=== PATIENT | male | born 1935 | race Caucasian/White ===

== ENCOUNTER 2016-12-08 20:36 | Inpatient (IN) | payer MEDICARE ==
--- NOTE | ~2016-12-08 | OP ---
Record Of Operation [facility] [address] [place]. [address] NAME: MELISSA PARIKH : 34 STATUS : ADM IN PAT#: [id number] AGE: 81 ADM/REG DATE : 12/08/16 MR#: [id number] REPORT SERV DATE: 12/08/16 DICTATED BY: JUDIT MENARD DATE: 12/08/16 REPORT STATUS : Draft TRANSCRIBED BY: MODTimo DATE: 12/08/16 DATE OF PROCEDURE: 12/08/2016 PULMONARY CRITICAL CARE MEDICINE PROCEDURE NOTE PROCEDURE: Endotracheal intubation. BACKGROUND: Melissa Parikh is a gentleman who was just flown in for ST-elevation AR from an outside facility. He was on the table in the laboratory apparatus glass grinder undergoing left heart catheterization with Interventional Cardiology and became increasingly short of breath. A Code Blue was called as he had developed a junctional rhythm with oxygen saturation in the 60s, and upon our arrival, had never lost a pulse. At the request of Dr. Schafer, he was emergently intubated on the laboratory apparatus glass grinder table intraoperatively. PREMEDICATION: 20 mg of etomidate, 50 mg of rocuronium followed by 5 mL of propofol. PROCEDURE IN DETAIL: During left heart catheterization, Mr. Parikh was positioned and premedicated with rapid sequence intubation drugs as described above and #3 GlideScope was advanced into his mouth and was used to directly visualize his vocal cords, and an endotracheal tube (#7.5) was advanced under direct visualization into his trachea to a depth of approximately 22 cm at the teeth. Following intubation, he had bilateral breath sounds. There was adequate color change on CO2 detector. There was condensation in the tube with bagging and absent breath sounds over the fundus of the stomach. A followup x-ray will be requested once he is moved out of the laboratory apparatus glass grinder and up to the CCU. An OG tube was also inserted and placement will be confirmed after he is moved to the CCU. Please see additional Critical Care documentation for further details. NASIM/CLEVE Judit Menard MD / [id number] CC: Donaldo Schafer MD
--- NOTE | ~2016-12-08 | OP ---
Record Of Operation [facility] [address] [place]. [address] NAME: MELISSA DELACRUZ : 34 STATUS : ADM IN PAT#: [id number] AGE: 81 ADM/REG DATE : 12/08/16 MR#: [id number] REPORT SERV DATE: 12/13/16 DICTATED BY: IVONNE BHATTI DATE: 12/13/16 REPORT STATUS : Draft TRANSCRIBED BY: CLEVE DATE: 12/13/16 DATE OF PROCEDURE: 12/13/2016 PREOPERATIVE DIAGNOSIS: Paraphimosis and misplaced Barrett catheter. POSTOPERATIVE DIAGNOSIS: Paraphimosis and misplaced Barrett catheter. PROCEDURE: Reduction of paraphimosis and replacement of Barrett catheter. PROCEDURE IN DETAIL: Steady pressure was held with a 4 x 4 wrap on the patient's edematous foreskin until the edema was gone. The foreskin was then reduced to its appropriate anatomic position. The patient tolerated well. The Barrett catheter was then prepped with alcohol wipes to the hub. Copious K-Y jelly was placed at the patient's meatus. The balloon was then deflated. 10 mL only was found in the 30 mL balloon. The catheter was then advanced all the way to the hub without difficulty. 30 mL of sterile water was then placed in the catheter balloon. This was then seated at the bladder neck. The patient's urine cleared considerably. The patient's catheter was then cleaned and taped without traction to his left thigh. The patient's entire leg and catheter was then wrapped in Kerlix gauze from the tip of his penis to his knee. This is in the typical maneuver. This is to dissuade the patient from future attempts at pulling on his Barrett catheter. The patient was then turned back over to nursing staff. BIGG/CLEVE Ivonne Bhatti M.D. / [id number] CC: MD Aren Reed M.D.
--- NOTE | ~2016-12-08 | CN ---
Consultation Report [facility] [address] [place]. [address] NAME: MELISSA PARIKH : 34 STATUS : ADM IN PAT#: [id number] AGE: 81 ADM/REG DATE : 12/08/16 MR#: [id number] REPORT SERV DATE: 12/08/16 DICTATED BY: JUDIT MENARD DATE: 12/08/16 REPORT STATUS : Draft TRANSCRIBED BY: MODL DATE: 12/08/16 PULMONARY CRITICAL CARE MEDICINE CONSULTATION DATE OF CONSULTATION: 12/08/2016 REASON FOR CONSULTATION: Acute hypoxemic respiratory failure in the setting of STEMI with cardiogenic shock. HISTORY OF PRESENT ILLNESS: Mr. Parikh is an 81-year-old gentleman who was just flown in to our facility in the last hour carrying the diagnosis of STEMI, who had been urgently moved to the laboratory specialist for left heart catheterization with Dr. Schafer. He decompensated on the cath table, developed a junctional rhythm and satting in the 60s and a Code Blue was called, although he never actually lost a pulse prior to the code team's arrival. He was noted to be quite cyanotic, although still awake and interactive. Decision was made to intubate for airway protection and mechanical ventilatory support at Dr. Schafer's request and that procedure was performed on the laboratory specialist table, please see my separate dictation. He is now being moved to the CCU for ongoing management of his coronary event and associated shock and respiratory failure. All additional information is drawn from review of [employer] and [employer] as his family has not yet arrived and (he was flown in from [place], [place]). PAST MEDICAL HISTORY: Gleaned from review of [employer] and [employer] includes long-standing Crohn's disease with long-term immunosuppression followed by Dr. Antonino Monson, atrial fibrillation which is chronic in nature status post multiple ablation attempts in [address] Ronnie Denny, hypertension, gout, vague history of thalassemia, urinary tract infection, retroperitoneal bleed following treatment with Lovenox for a suspected DVT in 2008 requiring multiple packed red blood cell transfusions and embolization of bleeding artery Interventional Radiology at our facility in 2008. PAST SURGICAL HISTORY: He had a bowel surgery of some sort for Crohn's disease around 25 years ago and IR embolization of abdominal artery bleeding in 2008, appendectomy, pilonidal cyst revision, cardiac ablation x4 at [facility], colonoscopies, and hydrocele repair. SOCIAL HISTORY: No tobacco, alcohol, or illicit drug use. FAMILY HISTORY: Noncontributory. ALLERGIES: NONE KNOWN. HOME MEDICATIONS: Flecainide 100 mg twice a day; vitamin B with minerals one tablet daily; [place]-3 fatty acid 1000 mg of fish oil 1 g daily; vitamin B12, 1000 mg sublingually daily; Diovan 80 mg p.o. twice a day; amlodipine 5 mg twice a day; mesalamine (Asacol) 2400 mg p.o. twice a day. Consultation Report [place] [id number] [facility] [place] [place]. [address] NAME: MELISSA PARIKH : 34 STATUS : ADM IN [facility]#: [id number] AGE: 81 ADM/REG DATE : 12/08/16 MR#: [id number] REPORT SERV DATE: 12/08/16 DICTATED BY: JUDIT MENARD DATE: 12/08/16 REPORT STATUS : Draft TRANSCRIBED BY: CLEVE DATE: 12/08/16 REVIEW OF SYSTEMS: Very limited as the patient was undergoing left heart cath, negative except for as per HPI above. ADVANCED DIRECTIVES: Living Francis none. PHYSICAL EXAMINATION: GENERAL: The patient is a male, in significant respiratory distress. He was cyanotic. He was mildly tachycardic in the low 100s, blood pressure was in the 140s systolic on supplemental dobutamine. He is afebrile, breathing around 34 times a minute and denied pain. The patient is a male who appears his stated age. HEENT: Head is atraumatic, but was cyanotic. Pupils were equal, round, and reactive to light. Extra movements were intact. He had mild conjunctival pallor. ENT exam; cyanosis as above, mild rhinophyma. Oral mucosa was slightly moist with fair oral dentition. NECK: Supple with positive JVD to the level of the sternocleidomastoid. HEART: S1, S2. Sluggish cap refill distal extremities, mild cyanosis distal extremities. LUNGS: With crackles bilaterally at the bases. ABDOMEN: Soft with previous surgical scar. Nontender, nondistended with positive bowel sounds in all four quadrants and no appreciable peritoneal signs. : Normal external male genitalia. EXTREMITIES: Without clubbing. He did have mild cyanosis of his digits on the upper and lower extremities prior to intubation. No significant pretibial or pedal edema. NEUROLOGIC: Exam was limited due to his acuity, but he was awake and communicative and cooperative with plan for intubation. Moved all four extremities without difficulty with intact sensory function throughout. Coordination and gait were not examined. PSYCHIATRIC: Exam was appropriate to situation. LABORATORY AND DIAGNOSTIC DATA: Personal review of diagnostic workup completed since arrival: CBC shows microcytic hypochromic anemia with mild coagulopathy with an INR of 1.6. Laboratory panel shows hypokalemia at 3.4 with mild acute kidney injury. BUN is 26 and creatinine of 1.58 (it is unclear if the patient has any underlying history of chronic kidney disease. He has mild hyperglycemia with a glucose of 181 in the setting of critical illness and negative troponin. Magnesium level was 2.2 and a phosphorus was not checked. An ABG showed mild respiratory acidosis with a pH 7.31, pCO2 of 58, and marked hypoxemia with a pO2 of 56% on 100% non-rebreather and an oxygen saturation of 81.2%. EKG and x-rays were not available at the time of my initial assessment and will be followed up. IMPRESSION: 1. Acute hypoxemic respiratory failure. 2. ST-elevation myocardial infarction with associated cardiogenic shock. 3. Hypokalemia. 4. Acute kidney injury, presumably superimposed on some component of chronic kidney disease. 5. Mild respiratory acidosis secondary to the above. 6. Hyperglycemia in the setting of critical illness. Consultation Report [address] [address] NAME: MELISSA PARIKH : 33 STATUS : ADM IN [facility]#: [id number] AGE: 81 ADM/REG DATE : 12/08/16 MR#: [id number] REPORT SERV DATE: 12/08/16 DICTATED BY: JUDIT MENARD DATE: 12/08/16 REPORT STATUS : Draft TRANSCRIBED BY: MODL DATE: 12/08/16 7. History of longstanding Crohn's disease requiring previous immunosuppression. 8. History of atrial fibrillation, status post multiple ablations. 9. Hypertension. 10.Gout. 11.Additional past medical history as above. PLAN: Mr. Parikh has been intubated in the cardiac laboratory specialist and is to be moved to the CCU for close monitoring afterward. We will institute lung protective ventilation strategy and begin ventilator weaning trials tomorrow pending clinical stability from a cardiac standpoint. He will need to undergo electrolyte replacement and we will trend his renal function in the setting of contrast administration during left heart cath and avoid nephrotoxins as much as feasible. He will be covered with DVT and GI prophylaxis and is a full code. His family will be updated upon their arrival. Approximately, 65 minutes of critical care time assessing and stabilizing Mr. Parikh in cardiac laboratory specialist and later in the CCU. Please see separate intubation note. I discussed case with Dr. Schafer and reviewed records in both [employer] and [employer]. NASIM/MODL Judit Menard MD / [id number] CC: Donaldo Schafer MD
--- NOTE | ~2016-12-08 | DS ---
Discharge Summary [facility] [address] [place]. [address] NAME: MELISSA DELACRUZ : 33 STATUS : DIS IN PAT#: [id number] AGE: 81 ADM/REG DATE : 12/08/16 MR#: [id number] REPORT SERV DATE: 01/06/17 DICTATED BY: DONALDO SCHAFER DATE: 01/05/17 REPORT STATUS : Draft TRANSCRIBED BY: CLEVE DATE: 01/05/17 Data Collection from hospitalization DISCHARGE DIAGNOSES: 1. Inferior myocardial infarction-acute. 2. Ischemic cardiomyopathy. 3. Acute/chronic systolic congestive heart failure. 4. Encephalopathy. 5. Acute kidney injury/chronic kidney disease. 6. Gross hematuria. 7. Chronic atrial fibrillation. 8. Hypoxia. 9. Hypertension. 10.Crohn disease. 11.Gout. 12.Thalassemia. CONSULTATIONS: Rosanna Bryant, MUCK OPERATOR-C. Dr. Kendrick Barrett. Dr. Kerry Navas. PROCEDURES PERFORMED: 1. Cardiac catheterization and percutaneous coronary intervention, 12/08/2016. 2. Endotracheal intubation, 12/08/2016. 3. Staged percutaneous coronary intervention, 12/09/2016. 4. Reduction of paraphimosis and replacement of Barrett catheter, 12/13/2016. 5. CT scan of the abdomen and pelvis without contrast/kidney stone protocol, 12/12/2016. 6. CT scan of the brain without contrast, 12/17/2016. MEDICATIONS: Aspirin 81 mg daily, Lipitor 40 mg at bedtime, Diprosone one application topically twice a day, vitamin B12 1000 mcg daily, Cardizem CD 180 mg daily, heparin 5000 units subcutaneously every eight hours, NovoLog injection insulin as instructed, Delzicol 1600 mg three times a day, Lopressor 100 mg every 12 hours, Protonix 40 mg before breakfast, Brilinta 90 mg every 12 hours, Proventil 3 mL every four hours while awake. CONDITION AT DISCHARGE: Stable. DISPOSITION: The patient was discharged to [facility] on a low-sodium diet with 2 L fluid restriction and activities as instructed. He would follow up with Dr. Rashid seven days following discharge and with Dr. Schafer three to four weeks following discharge. HOSPITAL COURSE: This is an 81-year-old man, who presented to [facility] via EMS for management of evolving inferior myocardial infarction. Code STEMI had been activated. The patient was transported via helicopter to the [facility] with inferior myocardial infarction, complicated by bradycardia. Upon his arrival, the patient was noted to be bradycardic in the 40s with a junctional rhythm and ST elevations inferiorly. He was alert, but slow to respond. He had a low blood pressure at the time of his arrival. He was treated with aspirin and heparin. It was felt that he would need to undergo emergent cardiac catheterization and possible percutaneous coronary intervention. He was admitted to [address] [address] NAME: MELISSA DELACRUZ : 34 STATUS : DIS IN PAT#: [id number] AGE: 81 ADM/REG DATE : 12/08/16 MR#: [id number] REPORT SERV DATE: 01/06/17 DICTATED BY: DONALDO SCHAFER DATE: 01/05/17 REPORT STATUS : Draft TRANSCRIBED BY: CLEVE DATE: 01/05/17 the hospital at this time for further evaluation and treatment. Upon admission, he was taken emergently to the cardiac wharf labourer, where he underwent the above-mentioned procedure. The patient initially underwent placement of a transvenous pacemaker, followed by diagnostic coronary angiography demonstrating occluded RCA. He was intubated in the wharf labourer by Dr. Navas due to progressive respiratory failure. He subsequently underwent primary percutaneous coronary intervention to the culprit distal RCA lesion with subsequent proximal RCA stent placed. He had severe distal LAD lesion that was not treated. He was admitted to the CCU for management of acute myocardial infarction and respiratory failure. Ventilatory support would be weaned as tolerated. Despite initial hypotensive presentation, his blood pressure became elevated during the course of the case, requiring the use of nitroglycerin intravenously. This would be weaned as tolerated. An echocardiogram was requested. We would cautiously introduce low-dose beta blockers as his blood pressure would tolerate. The transvenous pacemaker would be kept in place overnight and we anticipated removal the following morning if there was no recurrent and significant bradycardia. He would be treated with dual anti-platelet therapy, aspirin and Brilinta. Given his history of Crohn disease, we may need to consider a protracted course versus transition to Plavix as an alternative. He had declined oral anticoagulation, but we would discuss this with him during this admission. The following day, he had had labile blood pressures overnight, requiring variable doses of dopamine alternating with nitroglycerin drip for hypertension. He did receive a 500 mL bolus. He had some hematuria after Barrett catheter was placed. He had received Angiomax, Brilinta, and aspirin. H and H had decreased from 11.1 to 10. This included his blood loss during the catheterization. He was going to be typed and screened. Dopamine was changed to Levophed. Echocardiogram was requested. The patient did develop hypotension. Ventilator support continued. A PICC line was inserted. The patient was seen by Dr. Kendrick Barrett regarding gross hematuria. The patient had some clot retention. The nursing staff was able to irrigate his bladder and provide some decompression. A three-way Barrett catheter was going to be placed. We would initiate continuous bladder irrigation. It was felt that he would probably have to remain on blood thinners. Depending on his clinical course and prognosis, we would determine how aggressive we would be with further imaging and intervention. The patient was taken back to the cardiac wharf labourer, where he underwent the above-mentioned procedure. He tolerated this well and there were no complications. On 12/10/2016, he remained on Levophed. Telemetry revealed atrial fibrillation. H and H had decreased. He did have an elevated white blood cell count at 17.8. Chest x-ray showed a right-sided infiltrate. His arterial and venous sheaths were going to be removed. Creatinine was 1.86. Urine was pink on slow continuous bladder irrigation. Continuous bladder irrigation was being weaned. No attempt to extubate the patient was performed. Due to decreased tidal volumes during weaning trials, pressor requirements decreased. He was felt to be in cardiogenic shock. IV Bumex was given. He was essentially off continuous bladder irrigation at this time. His urine was pink. On 12/12/2016, he was in no acute distress. He had been extubated. Urine still had some blood, but no clot problems. Creatinine had increased to 2.3. That evening, he did have some delirium. He was in a normal sinus rhythm. He was hemodynamically stable. On 12/13/2016, he was in no acute distress. His chest x-ray appeared to be improving. Creatinine was now 2.18. He still had some confusion, but overall, his mental status was improving. He had no chest pain or Discharge Summary [place] [address] [place]. [address] NAME: MELISSA DELACRUZ : 34 STATUS : DIS IN PAT#: [id number] AGE: 81 ADM/REG DATE : 12/08/16 MR#: [id number] REPORT SERV DATE: 01/06/17 DICTATED BY: DONALDO SCHAFER DATE: 01/05/17 REPORT STATUS : Draft TRANSCRIBED BY: CLEVE DATE: 01/05/17 shortness of breath. He was grossly euvolemic. Metoprolol was started for heart rate control. No anticoagulation would be given at this time due to jim hematuria and decreasing H and H. He was transferred to the floor. His acute renal failure was improving. ATN was suspected. The patient underwent reduction of paraphimosis and replacement of Barrett catheter by Dr. Ivonne Bhatti regarding paraphimosis and misplaced Barrett catheter. He still had confusion. Over the next couple of days, he was placed back on continuous bladder irrigation. Urine was clear with no clots. He had been transferred to the floor. A voiding trial was going to be performed. He had no chest pain. He said he felt well. He was making significant progress. Aspirin and Brilinta were continued. He was seen by Rosanna Bryant regarding encephalopathy and management of pneumonia and antibiotics. His cardiogenic shock had resolved. He had been extubated successfully on 12/11/2016. The hospitalist had been consulted for evaluation and recommendations to treat encephalopathy, pneumonia, and antibiotic management. The patient's son said that the patient had been placed on home supplemental nocturnal oxygen therapy 3 L approximately one to two months prior to this hospitalization. The patient had been instructed to use daytime supplemental oxygen as needed. He was felt to have possible healthcare-acquired pneumonia. Most recent chest x-ray had reported stable pulmonary venous congestion and right perihilar infiltrate. On admission, blood cultures have been negative. Sputum culture from 12/10/2016 was negative. Urine culture had been positive for Klebsiella oxytoca, which was sensitive to Levaquin. It was felt that the encephalopathy was likely multifactorial, including recent cardiogenic shock and respiratory failure in the setting of myocardial infarction, urinary tract infection, and possible healthcare community acquired pneumonia and stayed in the ICU with the acute onset of delirium noted. The patient was using sparse narcotics for pain control and had only received one dose of [place] in the past 48 hours. He had also received a dose of Seroquel at bedtime and Ativan on the evening of 12/14/2016. Telemetry revealed atrial fibrillation. The patient had no agitation at this time. He was very weak. On 12/17/2016, the Barrett catheter had been removed. He was urinating, but not much. He had no chest pain. His dyspnea had improved. He had trace edema. Norvasc was held. Metoprolol was increased. O2 was being weaned. Lasix was continued. CT scan of the brain without contrast was performed. No acute intracranial pathology was identified. The following day, O2 and bronchodilators were continued. The patient went into rapid atrial fibrillation. He does have modest rate control. He said he was feeling better. On the morning of 12/19/2016, he still felt weak. He had no chest pain. His dyspnea had improved. He had trace edema. We would try to avoid amiodarone. Metoprolol had been increased. Diltiazem was added. We encouraged him to increase his activity. He still had confusion on and off. He had good urine output. Lasix was decreased. On 12/20/2016, he was afebrile. Creatinine level was 2.02. White count was 12.9. Vitamin B12 was given. He had some mild shortness of breath, but no chest pain. He continued to progress. Discharge planning was performed. On 12/22/2016, he was doing well. He remained afebrile. He had good urine output. His on and off confusion was improving. He was alert and cooperative. He had no edema. Barrett catheter revealed yellow urine. Creatinine was 2.14. His atrial fibrillation was rate controlled. His heart failure had improved. Hematuria had resolved. Amiodarone/diltiazem were discontinued. Aspirin and Brilinta were continued. Discharge instructions were given. Due to his improved and stable condition, he was discharged to [facility] with the above-stated instructions. Discharge Summary [address] [place]. [address] NAME: MELISSA DELACRUZ : 33 STATUS : [facility] [id number] AGE: 81 ADM/REG DATE : 12/08/16 MR#: [id number] REPORT SERV DATE: 07/11/17 DICTATED BY: DONALDO SCHAFER DATE: 01/05/17 REPORT STATUS : Draft TRANSCRIBED BY: CLEVE DATE: 01/05/17 Information collected by: Mallika Dias I submit the above information as my discharge summary. CAROLINA/CLEVE Donaldo Schafer MD / [id number] CC: [facility] Kendrick Barrett M.D.
--- NOTE | ~2016-12-08 | CN ---
Consultation Report [facility] [address] [place]. [address] NAME: MELISSA DELACRUZ : 34 STATUS : ADM IN PAT#: [id number] AGE: 81 ADM/REG DATE : 12/08/16 MR#: [id number] REPORT SERV DATE: 12/16/16 DICTATED BY: DATE: REPORT STATUS : Draft TRANSCRIBED BY: MODL DATE: 12/15/16 HOSPITALIST CONSULT. DATE OF CONSULTATION: 12/15/2016 REASON FOR REFERRAL: Encephalopathy and management of pneumonia/antibiotics. HISTORY OF PRESENTING ILLNESS: The patient's history was obtained through careful interview with the patient and his son coupled with review of [facility] records. Briefly, the patient is an 81-year-old male, who presented to [facility] via EMS for management of involving inferior myocardial infarction on 12/08/2016. The patient suffered acute hypoxemic respiratory failure in the setting of STEMI with cardiogenic shock. The patient was intubated for airway protection and mechanical ventilatory support. The patient is now status post primary percutaneous coronary intervention. Cardiogenic shock has since resolved and the patient was extubated successfully on 12/11/2016. The patient was transferred to cardiac telemetry floor on 12/13/2016 in stable condition. Hospitalist was consulted on 12/15/2016 for evaluation and recommendations to treat encephalopathy, pneumonia, and antibiotic management. The patient's son was at bedside during interview and the patient gave permission for son to participate in assisting with answering questions. The patient's son stated that patient was placed on home supplemental nocturnal oxygen therapy 3 L approximately one to two months ago. The patient was also instructed to use daytime supplemental oxygen as needed. The patient denied any symptoms of respiratory infection to include acute onset of cough, wheezing, shortness of breath, and fever prior to this admission. The son reports that the patient's baseline mental status is normally awake, alert, oriented x3 without transient confusion. The son stated that he noticed, the patient did have several episodes of "repeating himself" and moments of "mental fogginess" occurring two to three days prior to this admission. At the time of this interview the patient is awake, alert, and oriented to self, date of , home address, and family members. The patient has difficulty recalling recent events associated with hospitalization and is not oriented to month, day, or year. Consultation Report [facility] [address] [place]. [address] NAME: MELISSA DELACRUZ : 34 STATUS : ADM IN [facility]#: [id number] AGE: 81 ADM/REG DATE : 12/08/16 MR#: [id number] REPORT SERV DATE: 12/16/16 DICTATED BY: DATE: REPORT STATUS : Draft TRANSCRIBED BY: MODL DATE: 12/15/16 REVIEW OF SYSTEMS: During exam the patient denied headache, visual disturbances, dizziness, sore throat, wheezing, chest pain, abdominal pain, nausea, and vomiting. The patient did complain of occasional mild shortness of breath at rest. HOME MEDICATIONS: 1. HypoTears one to two drops in both eyes as needed. 2. Vitamin D 1000 units p.o. daily. 3. Vitamin B12 1000 mcg p.o. daily. 4. Flecainide 150 mg tablet p.o. twice daily. 5. Lasix 40 mg tablet p.o. daily. 6. Asacol HD 800 mg tablet p.o. three times daily. 7. Multivitamin tablet p.o. daily. 8. Klor-Con 10 mEq tablet p.o. daily. 9. Diovan 160 mg tablet p.o. twice daily. ALLERGIES: 1. PENICILLIN, REACTION RASH. 2. PREDNISONE, REACTION HEART OUT OF RHYTHM. 3. AUGMENTIN, REACTION RASH. 4. CROHN MEDICATIONS, REACTION BLEEDING. SOCIAL HISTORY: The patient resides at home with his . He ambulates without assistance using cane as needed. Remote history of tobacco use. No alcohol use. Retired in the year 1999 from [employer]. Two children. FAMILY HISTORY: Noncontributory. PAST MEDICAL HISTORY: 1. Crohn disease with long-term immunosuppression therapy. 2. Chronic AFib status post ablation x4. 3. Hypertension. 4. Gout. 5. Thalassemia. 6. Retroperitoneal bleed in 2008. 7. Chronic kidney disease? The patient's creatinine was mildly elevated upon admission; however, the patient has no personal history of diagnosis of chronic kidney disease. PAST SURGICAL HISTORY: 1. Bowel surgery approximately 25 years ago secondary to Crohn disease. 2. IR embolization of abdominal artery bleeding in 2008. 3. Appendectomy. 4. Pilonidal cyst revision. 5. Hydrocele repair. Consultation Report [place] [address] [place]. [address] NAME: MELISSA DELACRUZ : 34 STATUS : ADM IN PAT#: [id number] AGE: 81 ADM/REG DATE : 12/08/16 MR#: [id number] REPORT SERV DATE: 12/16/16 DICTATED BY: DATE: REPORT STATUS : Draft TRANSCRIBED BY: CLEVE DATE: 12/15/16 PHYSICAL EXAMINATION: VITAL SIGNS: Oxygen saturation 96% on 4 L, blood pressure 119/64, temperature 97.3, heart rate 100, respirations 20, weight 88.11 kg, and BMI 28.7. NEURO: The patient is alert with no focal deficits. GENERAL: The patient is cooperative and in no apparent distress. The patient is oriented to self, date of , home address and family; not oriented to month, date, or year. CHEST: No tenderness to palpation. LUNGS: Normal work of breathing. Shallow inspiratory effort. Equal air entry bilaterally, distant at the bases. No wheezes. No rhonchi. ABDOMEN: Soft and nontender. Bowel sounds present in all quadrants. CARDIOVASCULAR: Irregular rhythm, rate controlled. EXTREMITIES: 1+ edema to bilateral lower extremities. PSYCH: No behavioral disturbances. Interactive throughout interview and exam. ASSESSMENT AND PLAN: 1. Possible healthcare acquired pneumonia. The patient is status post intubation between the dates of 12/08/2016 and 12/11/2016. Most recent chest x-ray obtained today reported stable pulmonary venous congestion and right perihilar infiltrate. Blood cultures x2 sites obtained upon admission, negative. Sputum culture obtained on 12/10/2016 negative. Maximum temperature 100.1 degrees Fahrenheit on 12/10/2016. Procalcitonin level was obtained on 12/10/2016 and was reported to be mildly elevated at 0.72. Upon admission on 12/08/2016 white blood count was normal at 8.2. White blood count spiked on 12/10/2016, it was reported to be 17.8 and continued to trend upward to 18.9 on 12/11/2016. The patient was started on cefepime and azithromycin on 12/10/2016. Zithromax was continued through the 12/12/2016. The patient received vancomycin between 12/11/2016 and 12/12/2016. Cefepime is current since 12/10/2016. Procalcitonin will be repeated in the morning. Continue cefepime for one more day to equal seven-day therapy and then switch to Levaquin 750 mg p.o. every 24 hours x3 days to complete a total 10-day antibiotic therapy. Pharmacy to dose Levaquin based on renal function. It is noteworthy to mention that the patient was also diagnosed with urinary tract infection on 12/10/2016, about the same time the white blood cell count spiked. The patient was found to have misplaced Barrett catheter and paraphimosis on 12/13/2016. The patient underwent manual reduction of foreskin and Barrett catheter placement adjustment. This most likely has also contributed to spike in white blood cell count. Urine culture was positive for Klebsiella oxytoca which is also sensitive to Levaquin. 2. Encephalopathy. This is most likely multifactorial to include recent cardiogenic shock and respiratory failure in the setting of myocardial infarction, urinary tract infection, possible Healthcare community-acquired pneumonia, and ICU stay where acute onset of delirium was noted. The patient's medications have been reviewed and there are no indications that encephalopathy may be related to medication side effect. The patient is using sparse narcotics for pain control and has only received one dose of Dennis in the past 48 hours. The patient has also received one dose of Seroquel 12.5 mg on 12/14/2016 h.s. and 0.5 mg of Ativan the evening of 12/14/2016. No recommendations for changes at this time. Consultation Report [place] [address] [facility] [place]. [address] NAME: MELISSA DELACRUZ : 34 STATUS : ADM IN [facility]#: [id number] AGE: 81 ADM/REG DATE : 12/08/16 MR#: [id number] REPORT SERV DATE: 12/16/16 DICTATED BY: DATE: REPORT STATUS : Draft TRANSCRIBED BY: MODL DATE: 12/15/16 Thank you for this consultation. We will look forward to participating in the care of this patient and we will follow along daily. MARY/CLEVE FEDERICO Dubois / [id number] CC: Donaldo Schafer MD
--- NOTE | ~2016-12-08 | CN ---
Consultation Report [facility] [address] [place]. [address] NAME: MELISSA DELACRUZ : 34 STATUS : ADM IN PAT#: [id number] AGE: 81 ADM/REG DATE : 12/08/16 MR#: [id number] REPORT SERV DATE: 12/09/16 DICTATED BY: KENDRICK GUPTA DATE: 12/09/16 REPORT STATUS : Draft TRANSCRIBED BY: MODL DATE: 12/09/16 CONSULTATION DATE OF CONSULTATION: 12/09/2016 REASON FOR CONSULTATION: Gross hematuria. IMPRESSION: Gross hematuria. The patient was in acute myocardial infarction with cardiogenic shock on Brilinta and aspirin. RECOMMENDATIONS: 1. The patient had some clot retention, the nursing staff was able to irrigate his bladder and provide some decompression. He going to have a three-way Gupta catheter, brought to the room, and we will exchange his two-catheter for a three-way, initiate continuous bladder irrigation. 2. He probably have to remain on his blood thinners. 3. Depending on his clinical course and prognosis, we will determine how aggressive we are with the further imaging and intervention. DISCUSSION: This is an 81-year-old male, with multiple medical problems, who was air-lifted here to the hospital with cardiogenic shock. He underwent emergency angioplasty last night. He was started on Brilinta and aspirin. He remains intubated and on pressors. He has developed gross hematuria. There is not much history that can be obtained from the patient at the present time. Reviewing the medical record indicates that he had a spontaneous retroperitoneal bleed while on anticoagulants therapy in 2008 for a deep vein thromboses. PHYSICAL EXAMINATION: GENERAL: Shows a well-developed, elderly male, intubated in the ICU. VITAL SIGNS: Present blood pressure is approximately 70/50. HEENT: His pupils do not appear to react to light. Although, he is sedated heavily. ABDOMEN: Soft. GENITOURINARY: The bladder feels distended. The penis has a catheter in place. There was bloody urine being drained. EXTREMITIES: Lower extremities show no deformities. He is not moving any of the extremities, although he is sedated. LABORATORY DATA: Significant studies he had a serum creatinine 1.1 yesterday. I do not have any coags or CBC on. PF/MODL Consultation Report [address] [address] NAME: MELISSA DELACRUZ : 34 STATUS : ADM IN PAT#: [id number] AGE: 81 ADM/REG DATE : 12/08/16 MR#: [id number] REPORT SERV DATE: 12/09/16 DICTATED BY: KENDRICK GUPTA DATE: 12/09/16 REPORT STATUS : Draft TRANSCRIBED BY: CLEVE DATE: 12/09/16 Kendrick Gupta M.D. / [id number] CC: Donaldo Schafer MD
--- NOTE | ~2016-12-08 | HP ---
History And Physical [facility] [address] [place]. [address] NAME: MELISSA PARIKH : 34 STATUS : ADM IN [facility]#: [id number] AGE: 81 ADM/REG DATE : 12/08/16 MR#: [id number] REPORT SERV DATE: 12/09/16 DICTATED BY: DONALDO SCHAFER DATE: 12/08/16 REPORT STATUS : Draft TRANSCRIBED BY: MODL DATE: 12/08/16 DATE OF ADMISSION: 12/08/2016 ADMISSION DIAGNOSIS: Myocardial infarction. HISTORY OF PRESENT ILLNESS: Mr. Parikh is an 81-year-old male who presented to [facility] via EMS for management of evolving inferior myocardial infarction. A code STEMI was activated approximately 30 minutes prior and I discussed the case with the Triage Service reporting that a STEMI in the field was being transported via helicopter to [facility] with inferior DE complicated by bradycardia. Upon arrival, the patient was noted to be bradycardic in the 40s with a junctional rhythm and ST elevations inferiorly. He was alert, but slow to respond and was noted to have low blood pressure upon arrival. He was treated with aspirin and heparin and quickly transported to the catheterization lab where cardiac catheterization was performed. These details are dictated separately, but in summary, the patient initially underwent placement of a transvenous pacemaker followed by diagnostic coronary angiography demonstrating occluded RCA. He was intubated in the optical laboratory manager due to progressive respiratory failure. Subsequently, he underwent primary PCI to his culprit distal RCA lesion with a subsequent proximal RCA stent placed. He had a severe distal LAD lesion that was not treated. Additional history obtained from the family subsequent to the intervention was notable for onset of chest discomfort approximately 7:00 p.m. last night with a report that he was hurting all over. The patient had no history of coronary heart disease, but did have a history of atrial fibrillation with four prior ablations under the direction of Dr. Ronnie Denny. He is not on anticoagulation due to history of Crohn disease and GI bleeding as well as the patient preferences. MEDICATIONS: Not available at the time of dictation. SOCIAL HISTORY: . No tobacco, alcohol, or illicits. REVIEW OF SYSTEMS: Per HPI. Otherwise, negative. ALLERGIES: NONE. PHYSICAL EXAMINATION: VITAL SIGNS: Upon arrival; heart rate 40, blood pressure 80/48, and respiratory rate 28. GENERAL: Elderly patient in distress, slow to respond to questions, and ashen appearing in color. HEENT: Pupils are equal, round, and reactive to light. Mucous membranes are dry. CARDIOVASCULAR: Bradycardic. No murmurs are present. PULMONARY: Tachypneic, clear to auscultation. No wheezes. No rales. ABDOMEN: Soft, nondistended, and nontender. History And Physical [address] [place]. [address] NAME: MELISSA PARIKH : 34 STATUS : ADM IN [facility]#: [id number] AGE: 81 ADM/REG DATE : 12/08/16 MR#: [id number] REPORT SERV DATE: 12/09/16 DICTATED BY: DONALDO SCHAFER DATE: 12/08/16 REPORT STATUS : Draft TRANSCRIBED BY: CLEVE DATE: 12/08/16 EXTREMITIES: Cool without edema. LABS: Full labs are pending at the time of dictation, but initial report of creatinine to 1.58. EKG upon arrival demonstrated junctional rhythm with ST elevations in inferior leads. No prior EKG for comparison. Cardiac cath dictated separately and summarized in the HPI. IMPRESSIONS/RECOMMENDATIONS: 1. Acute inferior myocardial infarction, status post primary percutaneous coronary intervention to culprit right coronary artery. 2. Cardiogenic shock. 3. Bradycardia, status post transvenous pacemaker. 4. Coronary artery disease, two vessel. 5. Crohn disease. 6. Renal insufficiency, acute versus chronic. 7. Respiratory failure. The patient will be admitted to CCU for management of acute DE, respiratory failure. Ventilatory support will be weaned as tolerated. Despite initial hypotensive presentation, blood pressure became elevated during the course of the case, requiring use of nitroglycerin intravenously, which will be weaned as tolerated. We will obtain an echocardiogram tomorrow and cautiously introduce low-dose beta-blockers as his blood pressure tolerates. I have kept the transvenous pacemaker in overnight, but anticipate we will remove this in the morning if there is no recurrent and significant bradycardia, which improved post revascularization. He will be treated with dual anti-platelet therapy, aspirin and Brilinta; but given his history of Crohn disease, may need to consider protracted course versus transition to Plavix as an alternative. He previously has declined oral anticoagulation, but we will discuss this with him during this admission. Further recommendations pending initial clinical course. DIONE/GEEL Donaldo Schafer MD / [id number] CC: Donaldo Schafer MD
[~2016-12-08 20:36] MED LIST: ASACOL PO; CAT2 PO; DIOV80 PO; FISH-EPA1000 MG PO; LOP50 PO; NORV5 PO; STRESSZINC PO; TAMBOCOR PO; VITAMIN B-121000 MC1 SL
[2016-12-08 21:19] LABS: BASOPHILS 0.7 %; BASOPHILS ABSOLUTE 0.06 10/3/uL (0.0-0.16); EOSINOPHILS 2.9 %; EOSINOPHILS ABSOLUTE 0.24 10/3/uL (0.0-0.53); HEMATOCRIT 37.6 % (40.0-51.0); HEMOGLOBIN 11.1 g/dL (13.6-17.8); IMMATURE GRANULOCYTES 0.2 %; IMMATURE GRANULOCYTES ABSOLUTE 0.02 10/3/uL (0.0-0.11); LYMPHOCYTES 19.9 %; LYMPHOCYTES ABSOLUTE 1.63 10/3/uL (0.67-4.30); MEAN CORPUS HGB CONC 29.5 g/dL (32.0-36.0); MEAN CORPUSCULAR HEMOGLOB 17.2 pg (26.0-34.0); MEAN CORPUSCULAR VOLUME 58.3 fL (80-100); MONOCYTES 6.6 %; MONOCYTES ABSOLUTE 0.54 10/3/uL (0.21-1.20); NEUTROPHILS 69.7 %; NEUTROPHILS ABSOLUTE 5.72 10/3/uL (2.02-8.40); PLATELET COUNT 170 10/3/uL (150-400); RBC DISTRIBUTION WIDTH 18.4 % (12.0-16.0); RED CELL COUNT 6.45 10/6/uL (4.7-6.1); WHITE BLOOD CELLS 8.2 10/3/uL (4.5-10.5)
[2016-12-08 21:26] LABS: MANUAL DIFF NO %
[2016-12-08 21:27] LABS: INTERNATIONAL NORMAL RATI 1.6 UNITS (-); PROTIME (NOT ORD) 19.2 SEC (12.0-14.5)
[2016-12-08 21:35] LABS: BUN (BLOOD UREA NITROGEN) 26 MG/DL (6-23); CALCIUM, SERUM 8.1 MG/DL (8.5-10.4); CHEST PAIN PROFILE TAT 0 Hrs 22 Mins; CHLORIDE, SERUM 103 MMOL/L (96-112); CO2 (CARBON DIOXIDE) 33 MMOL/L (24-34); CREATININE 1.58 MG/DL (0.70-1.30); GFR AFRICAN AMERICAN 47 ML/MIN (>=60); GFR NON AFRICAN AMERICAN 40 ML/MIN (>=60); GLUCOSE, SERUM 181 MG/DL (60-99); POTASSIUM, SERUM 3.4 MMOL/L (3.5-5.3); SODIUM, SERUM 143 MMOL/L (135-148); TROPONIN I <0.02 NG/ML (<0.05)
[2016-12-08 21:36] LABS: BE (BASE EXCESS) 1.1 MEQ/L (0 +/- 2.5); CARBOXYHEMOGLOBIN 1.4 % (0-3); DEVICE NRB; HCO3 (ACTUAL BICARBONATE) 28.1 MEQ/L (23-27); HEMOBLOGIN CONTENT 12.3 G/DL (14-18); INSTRUMENT SERIAL # 8087; METHEMOGLOBIN 0.4 % (0-3); O2 CONTENT 13.8 VOL% (18-24); OPERATOR ID 35390; PCO2 (CO2 TENSION) 58 MMHG (35-45); PO2 (O2 TENSION) 56 MMHG (79-93); SAMPLE Arterial; pH 7.31 (7.37-7.43)
[2016-12-08 21:39] LABS: PARTIAL THROMBO TIME > 150.0 SEC (22.5-37.2)
[2016-12-08 21:50] LABS: CREATININE 0.9 MG/DL (0.70-1.30)
[2016-12-08 21:54] LABS: ANISOCYTOSIS 1+ (5-10/OIF) (0-5/OIF); HYPOCHROMIA 3+ (>30/OIF) (0-2/OIF); MICROCYTES 4+ (>50/OIF) (0-5/OIF); PLATELET ESTIMATE ADQ (ADEQUATE)
[2016-12-08 21:55] LABS: ELLIPTOCYTES 1+ (3-10/OIF) (0-2/OIF); OVALOCYTES 1+ (3-10/OIF) (0-2/OIF); POIKILOCYTOSIS 1+ (5-10/OIF) (0-5/OIF); TEARDROP SHAPED RBCS OCC (0-2/OIF)
[2016-12-08 23:31] LABS: CPK 386 U/L (0-200)
[2016-12-08 23:33] LABS: CK-MB 1.9 NG/ML
[2016-12-08 23:55] LABS: BE (BASE EXCESS) 3.9 MEQ/L (0 +/- 2.5); HCO3 (ACTUAL BICARBONATE) 30.3 MEQ/L (23-27); HEMOBLOGIN CONTENT 11.2 G/DL (14-18); INSTRUMENT SERIAL # 35151; METHEMOGLOBIN 0.6 % (0-3); MODE CMV; OPERATOR ID 17370; PCO2 (CO2 TENSION) 54 MMHG (35-45); PO2 (O2 TENSION) 212 MMHG (79-93); SAMPLE Arterial; pH 7.36 (7.37-7.43)
[2016-12-08 23:56] LABS: ALLENS TEST Pos; TIDAL VOLUME 450 ML
[2016-12-09 02:23] LABS: BASOPHILS 0.1 %; BASOPHILS ABSOLUTE 0.01 10/3/uL (0.0-0.16); EOSINOPHILS 0.7 %; EOSINOPHILS ABSOLUTE 0.05 10/3/uL (0.0-0.53); IMMATURE GRANULOCYTES 0.3 %; IMMATURE GRANULOCYTES ABSOLUTE 0.02 10/3/uL (0.0-0.11); LYMPHOCYTES 8.7 %; LYMPHOCYTES ABSOLUTE 0.65 10/3/uL (0.67-4.30); MEAN CORPUS HGB CONC 30.6 g/dL (32.0-36.0); MEAN CORPUSCULAR HEMOGLOB 17.6 pg (26.0-34.0); MEAN CORPUSCULAR VOLUME 57.7 fL (80-100); MONOCYTES 6.6 %; MONOCYTES ABSOLUTE 0.49 10/3/uL (0.21-1.20); NEUTROPHILS 83.6 %; NEUTROPHILS ABSOLUTE 6.23 10/3/uL (2.02-8.40); RBC DISTRIBUTION WIDTH 18.1 % (12.0-16.0); RED CELL COUNT 5.67 10/6/uL (4.7-6.1); WHITE BLOOD CELLS 7.5 10/3/uL (4.5-10.5)
[2016-12-09 02:26] LABS: HEMATOCRIT 32.7 % (40.0-51.0); MANUAL DIFF NO %; PLATELET COUNT 109 10/3/uL (150-400)
[2016-12-09 02:30] LABS: INTERNATIONAL NORMAL RATI 2.4 UNITS (-)
[2016-12-09 02:31] LABS: PARTIAL THROMBO TIME 69.3 SEC (22.5-37.2); PROTIME (NOT ORD) 25.9 SEC (12.0-14.5)
[2016-12-09 02:50] LABS: ANISOCYTOSIS 1+ (5-10/OIF) (0-5/OIF); HYPOCHROMIA 3+ (>30/OIF) (0-2/OIF); MICROCYTES 4+ (>50/OIF) (0-5/OIF); PLATELET ESTIMATE SLT DEC (ADEQUATE); TEARDROP SHAPED RBCS FEW (3-10/OIF)
[2016-12-09 02:52] LABS: A/G RATIO 1.2 (0.7-1.9); ALBUMIN 2.7 G/DL (3.5-5.0); ALKALINE PHOSPHATASE 64 U/L (45-117); BUN (BLOOD UREA NITROGEN) 23 MG/DL (6-23); CHLORIDE, SERUM 110 MMOL/L (96-112); CHOLESTEROL 86 MG/DL (< 200); CK-MB 47.8 NG/ML; CPK 644 U/L (0-200); GFR AFRICAN AMERICAN 72 ML/MIN (>=60); GFR NON AFRICAN AMERICAN 62 ML/MIN (>=60); GLOBULIN 2.2 G/DL (2.5-4.1); HDL CHOLESTEROL 29 MG/DL (> 39); LDL CHOLESTEROL 47 MG/DL (< 130); NON-HDL CHOLESTEROL 57 MG/DL (< 160); PHOSPHORUS, SERUM 3.1 MG/DL (2.5-4.5); POTASSIUM, SERUM 3.7 MMOL/L (3.5-5.3); PREALBUMIN 11.4 MG/DL (17.0-43.0); SGOT(AST) 67 U/L (5-40); SGPT(ALT) 18 U/L (5-65); SODIUM, SERUM 143 MMOL/L (135-148); TOTAL BILIRUBIN 0.7 MG/DL (0-1.2); TOTAL PROTEIN 4.9 G/DL (6.0-8.5); TRIGLYCERIDE 51 MG/DL (< 150)
[2016-12-09 02:56] LABS: CKMB INDEX (NOT ORD) 7.4; CO2 (CARBON DIOXIDE) 28 MMOL/L (24-34); GLUCOSE, SERUM 114 MG/DL (60-99)
[2016-12-09 03:33] LABS: CARBOXYHEMOGLOBIN 0.3 % (0-3); INSTRUMENT SERIAL # 35151; METHEMOGLOBIN 0.6 % (0-3); MODE CMV; O2 CONTENT 15.8 VOL% (18-24); OPERATOR ID 17370; PCO2 (CO2 TENSION) 52 MMHG (35-45); PO2 (O2 TENSION) 74 MMHG (79-93); SAMPLE Arterial; TIDAL VOLUME 450 ML; pH 7.39 (7.37-7.43)
[2016-12-09 05:40] LABS: HEMOGLOBIN 11.7 g/dL (13.6-17.8)
[2016-12-09 05:42] LABS: HEMATOCRIT 38.6 % (40.0-51.0)
[2016-12-09] MEDS ORDERED: FLECAINIDE150 MG PO (12:02)
[2016-12-09] MEDS ORDERED: HYPOTEARS OPH (12:02)
[2016-12-09] MEDS ORDERED: DIOV160 PO (12:02)
[2016-12-09] MEDS ORDERED: L40 PO (12:03)
[2016-12-09] MEDS ORDERED: ASACOL HD800 MG PO (12:04)
[2016-12-09] MEDS ORDERED: KLOR-CON 1010 MEQ PO (12:04)
[2016-12-09] MEDS ORDERED: CYANO1000T PO (12:05)
[2016-12-09] MEDS ORDERED: VITAMIN D1000 UNI1 PO (12:05)
[2016-12-09] MEDS ORDERED: MULTIVITAMI1 PO (12:06)
[2016-12-09 12:52] LABS: INTERNATIONAL NORMAL RATI 1.6 UNITS (-)
[2016-12-09 12:54] LABS: PROTIME (NOT ORD) 19.2 SEC (12.0-14.5)
[2016-12-09 13:56] LABS: CKMB INDEX (NOT ORD) 12.3
[2016-12-09 13:57] LABS: TROPONIN I 30.4 NG/ML (<0.05)
[2016-12-09 15:09] LABS: HEMATOCRIT 36.5 % (40.0-51.0); HEMOGLOBIN 10.9 g/dL (13.6-17.8)
[2016-12-09 17:32] LABS: CK-MB 63.1 NG/ML
[2016-12-09 17:38] LABS: CKMB INDEX (NOT ORD) 10.8
[2016-12-10 03:45] LABS: ALLENS TEST Pos; CARBOXYHEMOGLOBIN 0.4 % (0-3); HCO3 (ACTUAL BICARBONATE) 27.2 MEQ/L (23-27); HEMOBLOGIN CONTENT 10.7 G/DL (14-18); INSTRUMENT SERIAL # 35151; METHEMOGLOBIN 0.6 % (0-3); MODE CMV; O2 CONTENT 14.6 VOL% (18-24); OPERATOR ID 33214; PCO2 (CO2 TENSION) 40 MMHG (35-45); PO2 (O2 TENSION) 97 MMHG (79-93); SAMPLE Arterial; TIDAL VOLUME 400 ML; pH 7.45 (7.37-7.43)
[2016-12-10 03:50] LABS: BASOPHILS 0.2 %; BASOPHILS ABSOLUTE 0.03 10/3/uL (0.0-0.16); EOSINOPHILS 0.1 %; EOSINOPHILS ABSOLUTE 0.02 10/3/uL (0.0-0.53); HEMOGLOBIN 9.9 g/dL (13.6-17.8); IMMATURE GRANULOCYTES 0.2 %; IMMATURE GRANULOCYTES ABSOLUTE 0.04 10/3/uL (0.0-0.11); LYMPHOCYTES 8.4 %; MEAN CORPUS HGB CONC 30.7 g/dL (32.0-36.0); MEAN CORPUSCULAR HEMOGLOB 17.3 pg (26.0-34.0); MEAN CORPUSCULAR VOLUME 56.4 fL (80-100); MONOCYTES 9.3 %; MONOCYTES ABSOLUTE 1.65 10/3/uL (0.21-1.20); NEUTROPHILS 81.8 %; NEUTROPHILS ABSOLUTE 14.54 10/3/uL (2.02-8.40); RBC DISTRIBUTION WIDTH 18.2 % (12.0-16.0); RED CELL COUNT 5.71 10/6/uL (4.7-6.1)
[2016-12-10 03:51] LABS: HEMATOCRIT 32.2 % (40.0-51.0); MANUAL DIFF NO %; PLATELET COUNT 182 10/3/uL (150-400); WHITE BLOOD CELLS 17.8 10/3/uL (4.5-10.5)
[2016-12-10 04:09] LABS: ANISOCYTOSIS 1+ (5-10/OIF) (0-5/OIF); MICROCYTES 4+ (>50/OIF) (0-5/OIF); PLATELET ESTIMATE ADQ (ADEQUATE); TEARDROP SHAPED RBCS FEW (3-10/OIF)
[2016-12-10 04:10] LABS: ELLIPTOCYTES 1+ (3-10/OIF) (0-2/OIF); POLYCHROMASIA 1+ (2-5/OIF) (0-1/OIF)
[2016-12-10 04:13] LABS: A/G RATIO 1.2 (0.7-1.9); ALBUMIN 2.7 G/DL (3.5-5.0); ALKALINE PHOSPHATASE 54 U/L (45-117); CHLORIDE, SERUM 106 MMOL/L (96-112); CK-MB 38.9 NG/ML; CO2 (CARBON DIOXIDE) 28 MMOL/L (24-34); CPK 496 U/L (0-200); GLOBULIN 2.3 G/DL (2.5-4.1); GLUCOSE, SERUM 149 MG/DL (60-99); SGOT(AST) 92 U/L (5-40); SGPT(ALT) 28 U/L (5-65); SODIUM, SERUM 139 MMOL/L (135-148); TOTAL BILIRUBIN 0.8 MG/DL (0-1.2)
[2016-12-10 04:16] LABS: BUN (BLOOD UREA NITROGEN) 36 MG/DL (6-23); CALCIUM, SERUM 8.4 MG/DL (8.5-10.4); CKMB INDEX (NOT ORD) 7.8; CREATININE 1.86 MG/DL (0.70-1.30); GFR AFRICAN AMERICAN 38 ML/MIN (>=60); GFR NON AFRICAN AMERICAN 33 ML/MIN (>=60); POTASSIUM, SERUM 4.7 MMOL/L (3.5-5.3)
[2016-12-10 06:52] LABS: PROCALCITONIN 0.72 ng/mL (<0.5)
[2016-12-10 11:06] LABS: ASCORBIC ACID (UR NOT ORDER) NEG (NEG); BILIRUBIN, URINE NEGATIVE (NEG); KETONE, URINE NEGATIVE (NEG); LEUKOCYTE ESTERASE(NOT OR SMALL (NEG); WBC (NOT ORDERED) (RFLEX) 47 (0-5)
[2016-12-10 11:46] LABS: CREATININE, URINE < 5.0 MG/DL
[2016-12-11 04:07] LABS: ALLENS TEST Pos; BE (BASE EXCESS) 1.4 MEQ/L (0 +/- 2.5); CARBOXYHEMOGLOBIN 0.3 % (0-3); HCO3 (ACTUAL BICARBONATE) 26.1 MEQ/L (23-27); HEMOBLOGIN CONTENT 10.1 G/DL (14-18); INSTRUMENT SERIAL # 35151; METHEMOGLOBIN 0.7 % (0-3); MODE CMV; O2 CONTENT 13.3 VOL% (18-24); OPERATOR ID 23712; PCO2 (CO2 TENSION) 42 MMHG (35-45); PO2 (O2 TENSION) 78 MMHG (79-93); SAMPLE Arterial; TIDAL VOLUME 400 ML; pH 7.41 (7.37-7.43)
[2016-12-11 06:42] LABS: BASOPHILS 0.1 %; BASOPHILS ABSOLUTE 0.02 10/3/uL (0.0-0.16); EOSINOPHILS 0.4 %; EOSINOPHILS ABSOLUTE 0.07 10/3/uL (0.0-0.53); HEMATOCRIT 30.7 % (40.0-51.0); HEMOGLOBIN 9.4 g/dL (13.6-17.8); IMMATURE GRANULOCYTES 0.3 %; IMMATURE GRANULOCYTES ABSOLUTE 0.06 10/3/uL (0.0-0.11); LYMPHOCYTES 8.1 %; LYMPHOCYTES ABSOLUTE 1.54 10/3/uL (0.67-4.30); MEAN CORPUS HGB CONC 30.6 g/dL (32.0-36.0); MEAN CORPUSCULAR HEMOGLOB 17.2 pg (26.0-34.0); MEAN CORPUSCULAR VOLUME 56.3 fL (80-100); MONOCYTES 7.2 %; MONOCYTES ABSOLUTE 1.36 10/3/uL (0.21-1.20); NEUTROPHILS 83.9 %; NEUTROPHILS ABSOLUTE 15.88 10/3/uL (2.02-8.40); PLATELET COUNT 143 10/3/uL (150-400); RBC DISTRIBUTION WIDTH 18.2 % (12.0-16.0); RED CELL COUNT 5.45 10/6/uL (4.7-6.1); WHITE BLOOD CELLS 18.9 10/3/uL (4.5-10.5)
[2016-12-11 06:46] LABS: MANUAL DIFF NO %
[2016-12-11 06:50] LABS: INTERNATIONAL NORMAL RATI 1.7 UNITS (-); PROTIME (NOT ORD) 19.5 SEC (12.0-14.5)
[2016-12-11 06:55] LABS: CALCIUM, SERUM 8.6 MG/DL (8.5-10.4); CHLORIDE, SERUM 105 MMOL/L (96-112); CO2 (CARBON DIOXIDE) 30 MMOL/L (24-34); CREATININE 2.07 MG/DL (0.70-1.30); GFR AFRICAN AMERICAN 34 ML/MIN (>=60); GFR NON AFRICAN AMERICAN 29 ML/MIN (>=60); GLUCOSE, SERUM 153 MG/DL (60-99); PHOSPHORUS, SERUM 3.2 MG/DL (2.5-4.5); POTASSIUM, SERUM 4.8 MMOL/L (3.5-5.3); SODIUM, SERUM 142 MMOL/L (135-148)
[2016-12-11 06:56] LABS: BUN (BLOOD UREA NITROGEN) 47 MG/DL (6-23)
[2016-12-11 07:04] LABS: ANISOCYTOSIS 1+ (5-10/OIF) (0-5/OIF); HYPOCHROMIA 1+ (3-10/OIF) (0-2/OIF); MICROCYTES 4+ (>50/OIF) (0-5/OIF); PLATELET ESTIMATE SLT DEC (ADEQUATE)
[2016-12-11 07:05] LABS: ACANTHOCYTES OCC (0-2/OIF); BURR CELLS 1+ (3-10/OIF) (0-2/OIF); ELLIPTOCYTES 1+ (3-10/OIF) (0-2/OIF); POIKILOCYTOSIS 1+ (5-10/OIF) (0-5/OIF)
[2016-12-11 21:14] LABS: BUN (BLOOD UREA NITROGEN) 52 MG/DL (6-23); CALCIUM, SERUM 8.8 MG/DL (8.5-10.4); CHLORIDE, SERUM 105 MMOL/L (96-112); CO2 (CARBON DIOXIDE) 32 MMOL/L (24-34); CREATININE 2.22 MG/DL (0.70-1.30); GFR AFRICAN AMERICAN 31 ML/MIN (>=60); GFR NON AFRICAN AMERICAN 27 ML/MIN (>=60); GLUCOSE, SERUM 112 MG/DL (60-99); POTASSIUM, SERUM 4.1 MMOL/L (3.5-5.3); SODIUM, SERUM 143 MMOL/L (135-148)
[2016-12-12 05:10] LABS: BASOPHILS 0.1 %; BASOPHILS ABSOLUTE 0.01 10/3/uL (0.0-0.16); EOSINOPHILS 0 %; HEMATOCRIT 29.8 % (40.0-51.0); HEMOGLOBIN 8.8 g/dL (13.6-17.8); IMMATURE GRANULOCYTES 0.4 %; IMMATURE GRANULOCYTES ABSOLUTE 0.07 10/3/uL (0.0-0.11); LYMPHOCYTES 3.3 %; LYMPHOCYTES ABSOLUTE 0.61 10/3/uL (0.67-4.30); MEAN CORPUS HGB CONC 29.5 g/dL (32.0-36.0); MEAN CORPUSCULAR HEMOGLOB 16.8 pg (26.0-34.0); MEAN CORPUSCULAR VOLUME 56.8 fL (80-100); MONOCYTES 6.7 %; MONOCYTES ABSOLUTE 1.23 10/3/uL (0.21-1.20); NEUTROPHILS 89.5 %; NEUTROPHILS ABSOLUTE 16.38 10/3/uL (2.02-8.40); PLATELET COUNT 147 10/3/uL (150-400); RBC DISTRIBUTION WIDTH 18.3 % (12.0-16.0); RED CELL COUNT 5.25 10/6/uL (4.7-6.1); WHITE BLOOD CELLS 18.3 10/3/uL (4.5-10.5)
[2016-12-12 05:22] LABS: MANUAL DIFF NO %
[2016-12-12 05:27] LABS: ALBUMIN 2.9 G/DL (3.5-5.0); CALCIUM, SERUM 8.9 MG/DL (8.5-10.4); CHLORIDE, SERUM 102 MMOL/L (96-112); CO2 (CARBON DIOXIDE) 29 MMOL/L (24-34); CREATININE 2.35 MG/DL (0.70-1.30); GFR AFRICAN AMERICAN 29 ML/MIN (>=60); GFR NON AFRICAN AMERICAN 25 ML/MIN (>=60); GLUCOSE, SERUM 125 MG/DL (60-99); PHOSPHORUS, SERUM 2.9 MG/DL (2.5-4.5); SODIUM, SERUM 139 MMOL/L (135-148)
[2016-12-12 05:34] LABS: BUN (BLOOD UREA NITROGEN) 56 MG/DL (6-23)
[2016-12-12 05:48] LABS: ANISOCYTOSIS 1+ (5-10/OIF) (0-5/OIF); MICROCYTES 4+ (>50/OIF) (0-5/OIF); PLATELET ESTIMATE ADQ (ADEQUATE)
[2016-12-12 05:49] LABS: HYPOCHROMIA 3+ (>30/OIF) (0-2/OIF)
[2016-12-13 04:08] LABS: BASOPHILS 0.1 %; BASOPHILS ABSOLUTE 0.02 10/3/uL (0.0-0.16); EOSINOPHILS 1.4 %; HEMATOCRIT 27.9 % (40.0-51.0); HEMOGLOBIN 8.7 g/dL (13.6-17.8); IMMATURE GRANULOCYTES 0.3 %; IMMATURE GRANULOCYTES ABSOLUTE 0.05 10/3/uL (0.0-0.11); LYMPHOCYTES 4.2 %; MEAN CORPUSCULAR HEMOGLOB 17.6 pg (26.0-34.0); MEAN CORPUSCULAR VOLUME 56.4 fL (80-100); MONOCYTES 5.6 %; NEUTROPHILS 88.4 %; NEUTROPHILS ABSOLUTE 12.64 10/3/uL (2.02-8.40); PLATELET COUNT 155 10/3/uL (150-400); RBC DISTRIBUTION WIDTH 18.1 % (12.0-16.0); RED CELL COUNT 4.95 10/6/uL (4.7-6.1); WHITE BLOOD CELLS 14.3 10/3/uL (4.5-10.5)
[2016-12-13 04:09] LABS: MANUAL DIFF NO %; MEAN CORPUS HGB CONC 31.2 g/dL (32.0-36.0)
[2016-12-13 04:25] LABS: BUN (BLOOD UREA NITROGEN) 53 MG/DL (6-23); CALCIUM, SERUM 9.1 MG/DL (8.5-10.4); CHLORIDE, SERUM 102 MMOL/L (96-112); CO2 (CARBON DIOXIDE) 32 MMOL/L (24-34); CREATININE 2.18 MG/DL (0.70-1.30); GFR AFRICAN AMERICAN 32 ML/MIN (>=60); GFR NON AFRICAN AMERICAN 27 ML/MIN (>=60); GLUCOSE, SERUM 121 MG/DL (60-99); POTASSIUM, SERUM 4.2 MMOL/L (3.5-5.3); SODIUM, SERUM 139 MMOL/L (135-148)
[2016-12-13 04:33] LABS: ANISOCYTOSIS 1+ (5-10/OIF) (0-5/OIF); ELLIPTOCYTES 1+ (3-10/OIF) (0-2/OIF); HYPOCHROMIA 1+ (3-10/OIF) (0-2/OIF); MICROCYTES 4+ (>50/OIF) (0-5/OIF); PLATELET ESTIMATE ADQ (ADEQUATE); POIKILOCYTOSIS 1+ (5-10/OIF) (0-5/OIF); TARGET CELLS FEW (3-10/OIF) (0-1/OIF)
[2016-12-14 04:35] LABS: HEMATOCRIT 27.5 % (40.0-51.0); HEMOGLOBIN 8.4 g/dL (13.6-17.8); MEAN CORPUS HGB CONC 30.5 g/dL (32.0-36.0); MEAN CORPUSCULAR HEMOGLOB 17.4 pg (26.0-34.0); MEAN CORPUSCULAR VOLUME 56.9 fL (80-100); NUCLEATED RED BLOOD CELLS 0.2 /100WBC (0-0); PLATELET COUNT 162 10/3/uL (150-400); RED CELL COUNT 4.83 10/6/uL (4.7-6.1); WHITE BLOOD CELLS 10.9 10/3/uL (4.5-10.5)
[2016-12-14 04:42] LABS: MANUAL DIFF YES %
[2016-12-14 04:45] LABS: CALCIUM, SERUM 8.7 MG/DL (8.5-10.4); CHLORIDE, SERUM 104 MMOL/L (96-112); CO2 (CARBON DIOXIDE) 29 MMOL/L (24-34); GFR AFRICAN AMERICAN 37 ML/MIN (>=60); GFR NON AFRICAN AMERICAN 32 ML/MIN (>=60); POTASSIUM, SERUM 4.5 MMOL/L (3.5-5.3); SODIUM, SERUM 139 MMOL/L (135-148)
[2016-12-14 04:46] LABS: BUN (BLOOD UREA NITROGEN) 48 MG/DL (6-23); GLUCOSE, SERUM 95 MG/DL (60-99)
[2016-12-14 06:51] LABS: BAND NEUTROPHILS 1 %; EOSINOPHILS 3 %; EOSINOPHILS ABSOLUTE (CALC) 0.33 10/3/uL (0.0-0.53); GIANT PLATELET RARE; LYMPHOCYTES 7 %; LYMPHOCYTES ABSOLUTE (CALC) 0.76 10/3/uL (0.67-4.30); MONOCYTES 9 %; MONOCYTES ABSOLUTE (CALC) 0.98 10/3/uL (0.21-1.20); NEUTROPHILS ABSOLUTE (CALC) 8.83 10/3/uL (2.02-8.40); PLATELET ESTIMATE ADQ (ADEQUATE); SEGMENTED NEUTROPHIL (0) 80 %; TOTAL NUCLEATED CELLS 100
[2016-12-14 06:52] LABS: MICROCYTES 4+ (>50/OIF) (0-5/OIF)
[2016-12-14 06:53] LABS: HELMET CELLS OCC (0-2/OIF); TEARDROP SHAPED RBCS OCC (0-2/OIF)
[2016-12-15 04:43] LABS: BASOPHILS 0.1 %; BASOPHILS ABSOLUTE 0.01 10/3/uL (0.0-0.16); EOSINOPHILS 2.5 %; EOSINOPHILS ABSOLUTE 0.24 10/3/uL (0.0-0.53); HEMATOCRIT 25.9 % (40.0-51.0); HEMOGLOBIN 7.9 g/dL (13.6-17.8); IMMATURE GRANULOCYTES 0.4 %; IMMATURE GRANULOCYTES ABSOLUTE 0.04 10/3/uL (0.0-0.11); LYMPHOCYTES 4.7 %; LYMPHOCYTES ABSOLUTE 0.45 10/3/uL (0.67-4.30); MANUAL DIFF NO %; MEAN CORPUS HGB CONC 30.5 g/dL (32.0-36.0); MEAN CORPUSCULAR HEMOGLOB 17.2 pg (26.0-34.0); MEAN CORPUSCULAR VOLUME 56.6 fL (80-100); MONOCYTES 9.5 %; MONOCYTES ABSOLUTE 0.91 10/3/uL (0.21-1.20); NEUTROPHILS 82.8 %; NEUTROPHILS ABSOLUTE 7.96 10/3/uL (2.02-8.40); PLATELET COUNT 190 10/3/uL (150-400); RED CELL COUNT 4.58 10/6/uL (4.7-6.1); WHITE BLOOD CELLS 9.6 10/3/uL (4.5-10.5)
[2016-12-15 04:57] LABS: BUN (BLOOD UREA NITROGEN) 47 MG/DL (6-23); CALCIUM, SERUM 8.8 MG/DL (8.5-10.4); CHLORIDE, SERUM 105 MMOL/L (96-112); CO2 (CARBON DIOXIDE) 32 MMOL/L (24-34); CREATININE 1.69 MG/DL (0.70-1.30); GFR AFRICAN AMERICAN 43 ML/MIN (>=60); GFR NON AFRICAN AMERICAN 37 ML/MIN (>=60); GLUCOSE, SERUM 99 MG/DL (60-99); POTASSIUM, SERUM 3.6 MMOL/L (3.5-5.3); SODIUM, SERUM 144 MMOL/L (135-148)
[2016-12-15 07:00] LABS: ANISOCYTOSIS 1+ (5-10/OIF) (0-5/OIF); PLATELET ESTIMATE ADQ (ADEQUATE); ROULEAUX FORMATION 1+
[2016-12-15 07:01] LABS: ELLIPTOCYTES 1+ (3-10/OIF) (0-2/OIF); SCHISTOCYTES OCC (0-2/OIF); TARGET CELLS FEW (3-10/OIF) (0-1/OIF)
[2016-12-16 05:56] LABS: BUN (BLOOD UREA NITROGEN) 45 MG/DL (6-23); CALCIUM, SERUM 8.7 MG/DL (8.5-10.4); CHLORIDE, SERUM 101 MMOL/L (96-112); CO2 (CARBON DIOXIDE) 34 MMOL/L (24-34); CREATININE 1.56 MG/DL (0.70-1.30); GFR AFRICAN AMERICAN 47 ML/MIN (>=60); GFR NON AFRICAN AMERICAN 41 ML/MIN (>=60); GLUCOSE, SERUM 110 MG/DL (60-99); POTASSIUM, SERUM 3.4 MMOL/L (3.5-5.3); SODIUM, SERUM 142 MMOL/L (135-148)
[2016-12-16 05:58] LABS: CREATININE 1.5 MG/DL (0.70-1.30)
[2016-12-16 06:21] LABS: HEMOGLOBIN 8.5 g/dL (13.6-17.8); MEAN CORPUS HGB CONC 31.5 g/dL (32.0-36.0); MEAN CORPUSCULAR HEMOGLOB 17.4 pg (26.0-34.0); MEAN CORPUSCULAR VOLUME 55.2 fL (80-100); PLATELET COUNT 227 10/3/uL (150-400); RBC DISTRIBUTION WIDTH 17.8 % (12.0-16.0); RED CELL COUNT 4.89 10/6/uL (4.7-6.1); WHITE BLOOD CELLS 11.4 10/3/uL (4.5-10.5)
[2016-12-16 06:27] LABS: MANUAL DIFF YES %
[2016-12-16 06:44] LABS: ANISOCYTOSIS 1+ (5-10/OIF) (0-5/OIF); ELLIPTOCYTES 1+ (3-10/OIF) (0-2/OIF); HYPOCHROMIA 1+ (3-10/OIF) (0-2/OIF); MICROCYTES 4+ (>50/OIF) (0-5/OIF); PLATELET ESTIMATE ADQ (ADEQUATE); TARGET CELLS FEW (3-10/OIF) (0-1/OIF); TEARDROP SHAPED RBCS FEW (3-10/OIF)
[2016-12-16 07:59] LABS: PROCALCITONIN 0.27 ng/mL (<0.5)
[2016-12-17 05:13] LABS: BASOPHILS 0.2 %; BASOPHILS ABSOLUTE 0.02 10/3/uL (0.0-0.16); EOSINOPHILS 0.6 %; EOSINOPHILS ABSOLUTE 0.08 10/3/uL (0.0-0.53); HEMATOCRIT 26.6 % (40.0-51.0); HEMOGLOBIN 8.4 g/dL (13.6-17.8); IMMATURE GRANULOCYTES 0.6 %; IMMATURE GRANULOCYTES ABSOLUTE 0.08 10/3/uL (0.0-0.11); LYMPHOCYTES 5.5 %; LYMPHOCYTES ABSOLUTE 0.71 10/3/uL (0.67-4.30); MANUAL DIFF NO %; MEAN CORPUS HGB CONC 31.6 g/dL (32.0-36.0); MEAN CORPUSCULAR HEMOGLOB 17.4 pg (26.0-34.0); MEAN CORPUSCULAR VOLUME 55.1 fL (80-100); MONOCYTES 9.1 %; MONOCYTES ABSOLUTE 1.18 10/3/uL (0.21-1.20); NEUTROPHILS ABSOLUTE 10.95 10/3/uL (2.02-8.40); PLATELET COUNT 222 10/3/uL (150-400); RBC DISTRIBUTION WIDTH 17.7 % (12.0-16.0); RED CELL COUNT 4.83 10/6/uL (4.7-6.1)
[2016-12-17 05:34] LABS: CHLORIDE, SERUM 98 MMOL/L (96-112); CO2 (CARBON DIOXIDE) 34 MMOL/L (24-34); CREATININE 1.53 MG/DL (0.70-1.30); GFR AFRICAN AMERICAN 48 ML/MIN (>=60); GFR NON AFRICAN AMERICAN 42 ML/MIN (>=60); GLUCOSE, SERUM 97 MG/DL (60-99); POTASSIUM, SERUM 3.4 MMOL/L (3.5-5.3); SODIUM, SERUM 139 MMOL/L (135-148)
[2016-12-17 05:36] LABS: BUN (BLOOD UREA NITROGEN) 39 MG/DL (6-23)
[2016-12-17 05:54] LABS: ANISOCYTOSIS 1+ (5-10/OIF) (0-5/OIF); HYPOCHROMIA 3+ (>30/OIF) (0-2/OIF); PLATELET ESTIMATE ADQ (ADEQUATE)
[2016-12-17 05:55] LABS: MICROCYTES 4+ (>50/OIF) (0-5/OIF); SCHISTOCYTES OCC (0-2/OIF); TEARDROP SHAPED RBCS FEW (3-10/OIF)
[2016-12-17 05:56] LABS: ELLIPTOCYTES 1+ (3-10/OIF) (0-2/OIF); TARGET CELLS FEW (3-10/OIF) (0-1/OIF)
[2016-12-18 05:52] LABS: BASOPHILS 0.1 %; BASOPHILS ABSOLUTE 0.01 10/3/uL (0.0-0.16); EOSINOPHILS 1.6 %; HEMATOCRIT 26.9 % (40.0-51.0); HEMOGLOBIN 8.3 g/dL (13.6-17.8); IMMATURE GRANULOCYTES 0.3 %; IMMATURE GRANULOCYTES ABSOLUTE 0.04 10/3/uL (0.0-0.11); LYMPHOCYTES 5.6 %; LYMPHOCYTES ABSOLUTE 0.72 10/3/uL (0.67-4.30); MEAN CORPUS HGB CONC 30.9 g/dL (32.0-36.0); MONOCYTES 6.1 %; MONOCYTES ABSOLUTE 0.78 10/3/uL (0.21-1.20); NEUTROPHILS 86.3 %; NEUTROPHILS ABSOLUTE 11.12 10/3/uL (2.02-8.40); PLATELET COUNT 236 10/3/uL (150-400); RBC DISTRIBUTION WIDTH 17.6 % (12.0-16.0); RED CELL COUNT 4.89 10/6/uL (4.7-6.1); WHITE BLOOD CELLS 12.9 10/3/uL (4.5-10.5)
[2016-12-18 05:53] LABS: MANUAL DIFF NO %
[2016-12-18 06:09] LABS: BUN (BLOOD UREA NITROGEN) 41 MG/DL (6-23); CALCIUM, SERUM 8.9 MG/DL (8.5-10.4); CHLORIDE, SERUM 96 MMOL/L (96-112); CO2 (CARBON DIOXIDE) 34 MMOL/L (24-34); CREATININE 1.63 MG/DL (0.70-1.30); GFR AFRICAN AMERICAN 45 ML/MIN (>=60); GFR NON AFRICAN AMERICAN 39 ML/MIN (>=60); GLUCOSE, SERUM 102 MG/DL (60-99); POTASSIUM, SERUM 3.8 MMOL/L (3.5-5.3); SODIUM, SERUM 139 MMOL/L (135-148)
[2016-12-18 06:16] LABS: ANISOCYTOSIS 1+ (5-10/OIF) (0-5/OIF); ELLIPTOCYTES 1+ (3-10/OIF) (0-2/OIF); HYPOCHROMIA 1+ (3-10/OIF) (0-2/OIF); PLATELET ESTIMATE ADQ (ADEQUATE)
[2016-12-18 06:17] LABS: MICROCYTES 1+ (5-10/OIF) (0-5/OIF)
[2016-12-19 05:27] LABS: HEMATOCRIT 27.1 % (40.0-51.0); HEMOGLOBIN 8.2 g/dL (13.6-17.8)
[2016-12-19 05:43] LABS: CALCIUM, SERUM 8.9 MG/DL (8.5-10.4); CHLORIDE, SERUM 98 MMOL/L (96-112); CO2 (CARBON DIOXIDE) 35 MMOL/L (24-34); CREATININE 1.81 MG/DL (0.70-1.30); GFR AFRICAN AMERICAN 39 ML/MIN (>=60); GFR NON AFRICAN AMERICAN 34 ML/MIN (>=60); GLUCOSE, SERUM 98 MG/DL (60-99); SODIUM, SERUM 141 MMOL/L (135-148)
[2016-12-19 05:46] LABS: BUN (BLOOD UREA NITROGEN) 51 MG/DL (6-23)
[2016-12-20 06:04] LABS: HEMATOCRIT 27.3 % (40.0-51.0); HEMOGLOBIN 8.2 g/dL (13.6-17.8)
[2016-12-20 06:22] LABS: CHLORIDE, SERUM 96 MMOL/L (96-112); CO2 (CARBON DIOXIDE) 34 MMOL/L (24-34); CREATININE 2.02 MG/DL (0.70-1.30); GFR AFRICAN AMERICAN 35 ML/MIN (>=60); GFR NON AFRICAN AMERICAN 30 ML/MIN (>=60); GLUCOSE, SERUM 110 MG/DL (60-99); POTASSIUM, SERUM 3.9 MMOL/L (3.5-5.3); SODIUM, SERUM 138 MMOL/L (135-148)
[2016-12-20 06:23] LABS: BUN (BLOOD UREA NITROGEN) 57 MG/DL (6-23)
[2016-12-21 07:21] LABS: BUN (BLOOD UREA NITROGEN) 60 MG/DL (6-23); CHLORIDE, SERUM 101 MMOL/L (96-112); CO2 (CARBON DIOXIDE) 34 MMOL/L (24-34); CREATININE 1.97 MG/DL (0.70-1.30); GFR AFRICAN AMERICAN 36 ML/MIN (>=60); GFR NON AFRICAN AMERICAN 31 ML/MIN (>=60); GLUCOSE, SERUM 115 MG/DL (60-99); POTASSIUM, SERUM 4.1 MMOL/L (3.5-5.3); SODIUM, SERUM 142 MMOL/L (135-148); TROPONIN I 0.27 NG/ML (<0.05)
[2016-12-22 07:01] LABS: BASOPHILS 0.4 %; BASOPHILS ABSOLUTE 0.04 10/3/uL (0.0-0.16); EOSINOPHILS 1.8 %; HEMATOCRIT 28.2 % (40.0-51.0); HEMOGLOBIN 8.4 g/dL (13.6-17.8); IMMATURE GRANULOCYTES 0.6 %; IMMATURE GRANULOCYTES ABSOLUTE 0.07 10/3/uL (0.0-0.11); LYMPHOCYTES 5.1 %; LYMPHOCYTES ABSOLUTE 0.57 10/3/uL (0.67-4.30); MEAN CORPUS HGB CONC 29.8 g/dL (32.0-36.0); MEAN CORPUSCULAR HEMOGLOB 16.8 pg (26.0-34.0); MEAN CORPUSCULAR VOLUME 56.5 fL (80-100); MONOCYTES 5.3 %; MONOCYTES ABSOLUTE 0.59 10/3/uL (0.21-1.20); NEUTROPHILS 86.8 %; NEUTROPHILS ABSOLUTE 9.71 10/3/uL (2.02-8.40); RBC DISTRIBUTION WIDTH 17.9 % (12.0-16.0); RED CELL COUNT 4.99 10/6/uL (4.7-6.1); WHITE BLOOD CELLS 11.2 10/3/uL (4.5-10.5)
[2016-12-22 07:02] LABS: MANUAL DIFF NO %; PLATELET COUNT 311 10/3/uL (150-400)
[2016-12-22 07:11] LABS: CHLORIDE, SERUM 99 MMOL/L (96-112); CO2 (CARBON DIOXIDE) 36 MMOL/L (24-34); CREATININE 2.14 MG/DL (0.70-1.30); GFR AFRICAN AMERICAN 32 ML/MIN (>=60); GFR NON AFRICAN AMERICAN 28 ML/MIN (>=60); GLUCOSE, SERUM 113 MG/DL (60-99); POTASSIUM, SERUM 4.5 MMOL/L (3.5-5.3); SODIUM, SERUM 140 MMOL/L (135-148)
[2016-12-22 07:12] LABS: BUN (BLOOD UREA NITROGEN) 70 MG/DL (6-23)
[2016-12-22 07:18] LABS: PLATELET ESTIMATE ADQ (ADEQUATE)
[2016-12-22 07:19] LABS: ANISOCYTOSIS 1+ (5-10/OIF) (0-5/OIF); ELLIPTOCYTES 1+ (3-10/OIF) (0-2/OIF); MICROCYTES 4+ (>50/OIF) (0-5/OIF); POIKILOCYTOSIS 1+ (5-10/OIF) (0-5/OIF)
[2017-01-05] MEDS ORDERED: NOVOLOG SC (11:43)
[2017-01-05] MEDS ORDERED: DELZICOL 400 M400 MG PO (11:44)
[2017-01-05] MEDS ORDERED: PROTONIX PO (11:44)
[2017-01-05] MEDS ORDERED: HALF81 PO (11:45)
[2017-01-05] MEDS ORDERED: CYANO1000T PO (11:45)
[2017-01-05] MEDS ORDERED: LOP100 PO (11:48)
[2017-01-05] MEDS ORDERED: CARDIZEM LA180 MG PO (11:48)
[2017-01-05] MEDS ORDERED: KLOR-CON 1010 MEQ PO (11:49)
[2017-01-05] MEDS ORDERED: LIPITOR40 PO (11:50)
[2017-01-05] MEDS ORDERED: BRILINTA90 MG PO (11:51)
[2017-01-05] MEDS ORDERED: XOPENEX 0.63 MG/3 ML INH (11:52)
[2017-01-05] MEDS ORDERED: L40 PO (11:53)
== END 2016-12-22 19:25 | DRG 246 ==
LOC: ER 20:36 → SDC 20:44 → CCU 20:49 → SSU2 20:54 → CCU 22:13 → 7NO 12-15 12:04
PROVIDERS: Emergency Medicine; Internal Medicine; Internal Medicine Cardiovascular Disease; Internal Medicine Pulmonary Disease; Nurse Practitioner Family
PROC: 027035Z Dilation of Coronary Artery, One Artery with Two Drug-eluting Intraluminal Devices, Percutaneous Approach (ICD-10-PCS; principal; 2016-12-08)
PROC: 5A1945Z Respiratory Ventilation, 24-96 Consecutive Hours (ICD-10-PCS; 2016-12-08)
PROC: 0BH17EZ Insertion of Endotracheal Airway into Trachea, Via Natural or Artificial Opening (ICD-10-PCS; 2016-12-08)
PROC: B2151ZZ Fluoroscopy of Left Heart using Low Osmolar Contrast (ICD-10-PCS; 2016-12-08)
PROC: B2111ZZ Fluoroscopy of Multiple Coronary Arteries using Low Osmolar Contrast (ICD-10-PCS; 2016-12-08)
PROC: 4A023N7 Measurement of Cardiac Sampling and Pressure, Left Heart, Percutaneous Approach (ICD-10-PCS; 2016-12-08)
PROC: 5A1223Z Performance of Cardiac Pacing, Continuous (ICD-10-PCS; 2016-12-08)
PROC: 027034Z Dilation of Coronary Artery, One Artery with Drug-eluting Intraluminal Device, Percutaneous Approach (ICD-10-PCS; 2016-12-09)
PROC: 4A023N6 Measurement of Cardiac Sampling and Pressure, Right Heart, Percutaneous Approach (ICD-10-PCS; 2016-12-09)
PROC: 02HV33Z Insertion of Infusion Device into Superior Vena Cava, Percutaneous Approach (ICD-10-PCS; 2016-12-09)
PROC: 4A02X4A Measurement of Cardiac Electrical Activity, Guidance, External Approach (ICD-10-PCS; 2016-12-09)
PROC: 0VQTXZZ Repair Prepuce, External Approach (ICD-10-PCS; 2016-12-13)
PROC: 0T2BX0Z Change Drainage Device in Bladder, External Approach (ICD-10-PCS; 2016-12-13)
DX: I21.19 ST elevation (STEMI) myocardial infarction involving other coronary artery of inferior wall (principal); R57.0 Cardiogenic shock; J96.01 Acute respiratory failure with hypoxia; I47.2 Ventricular tachycardia; I50.23 Acute on chronic systolic (congestive) heart failure; G93.40 Encephalopathy, unspecified; N17.9 Acute kidney failure, unspecified; J18.9 Pneumonia, unspecified organism; N18.3 Chronic kidney disease, stage 3 (moderate); K50.90 Crohn's disease, unspecified, without complications; I13.0 Hypertensive heart and chronic kidney disease with heart failure and stage 1 through stage 4 chronic kidney disease, or unspecified chronic kidney disease; N39.0 Urinary tract infection, site not specified; I27.2 Other secondary pulmonary hypertension; R00.1 Bradycardia, unspecified; I25.10 Atherosclerotic heart disease of native coronary artery without angina pectoris; R31.0 Gross hematuria; M10.9 Gout, unspecified; I48.2 Chronic atrial fibrillation; E87.6 Hypokalemia; R73.9 Hyperglycemia, unspecified; I25.2 Old myocardial infarction; N47.2 Paraphimosis; T83.028A Displacement of other urinary catheter, initial encounter; F03.90 Unspecified dementia, unspecified severity, without behavioral disturbance, psychotic disturbance, mood disturbance, and anxiety; Z86.718 Personal history of other venous thrombosis and embolism; Z88.0 Allergy status to penicillin; Z88.8 Allergy status to other drugs, medicaments and biological substances; Z79.899 Other long term (current) drug therapy; Z87.891 Personal history of nicotine dependence; D64.9 Anemia, unspecified; B96.1 Klebsiella pneumoniae [K. pneumoniae] as the cause of diseases classified elsewhere; Y95 Nosocomial condition
CPT/HCPCS: 31720; 36415; 36569; 36600; 70450; 71010; 74176; 80048; 80053; 80061; 80069; 81001; 82330; 82533; 82550; 82553; 82565; 82570; 82803; 82805; 82947; 82962; 83735; 83880; 84100; 84132; 84134; 84145; 84156; 84295; 84443; 84484; 85014; 85018; 85025; 85347; 85610; 85730; 86850; 86900; 86901; 86920; 87040; 87070; 87077; 87086; 87186; 87205; 87449; 87641; 93005; 93306; 93453; 93458; 94002; 94003; 94640; 94660; 94770; 97110-GO; 97110-GP; 97116-GP; 97162-GP; 97166-GO; 97530-GO; 97530-GP; 97532-GO; 99152; 99153; 99285; A9270-GY; C1725; C1751; C1769; C1874; C1887; C1894; C9113; C9600; C9606; G8978-CM-GP; G8979-CJ-GP; J0282; J0330; J0456; J0583; J0692; J2250; J3010; J3370; Q9967